=== PATIENT | female | born 1960 | race Caucasian/White ===

== ENCOUNTER → 2022-10-11 10:37 | Outpatient (CLI) | payer BC, SELFPAY ==
--- NOTE | ~2022-10-11 | US_ITS ---
Renal-Bladder ultrasound Clinical History: Chronic kidney disease Technique: Real-time sonographic imaging of the kidneys and urinary bladder was performed. Findings: The right kidney measures 8.9 cm in length and the left kidney measures 7.2 cm. There is no hydronephrosis or renal calculus identified. Renal cortical echogenicity is within normal limits. No renal mass lesion is identified. The urinary bladder is moderately distended at the time of this exam. No intraluminal echoes are iden tified. No abnormal wall thickening is seen. Impression: Unremarkable ultrasound of the kidneys and urinary bladder. Reviewed, dictated and finalized at location M. Impression: Unremarkable ultrasound of the kidneys and urinary bladder.
== END ==
PROVIDERS: PCP Nurse Practitioner Family; Visit Provider Specialist
DX: N18.30 Chronic kidney disease, stage 3 unspecified (principal)
CPT/HCPCS: 76770

== ENCOUNTER 2025-02-07 09:43 | Outpatient (CLI) | payer OTHER, SELFPAY ==
--- NOTE | ~2025-02-07 | MM_ITS ---
EXAMINATION: MM screening [facility] BI w ale HISTORY: Screening TECHNIQUE: Craniocaudal and mediolateral oblique 3-D tomosynthesis images were obtained and synthetic 2-D images were generated. CAD analysis was submitted and interpreted. COMPARISON: Comparison to multiple prior studies sequentially, with oldest reviewed study dated 01/2021. BREAST PARENCHYMAL COMPOSITION: Not Dense: The breasts are almost entirely fatty. FINDINGS: There is no evidence of suspicious mass, calcification, or architectural distortion to sugg est malignancy in either breast. There has been no suspicious interval change. IMPRESSION: 1. No mammographic evidence of malignancy. 2. Recommend routine screening mammography in one year. BI-RADS Category 1: Negative Reviewed, dictated and finalized at location A.
--- NOTE | ~2025-02-07 | DEXA_ITS ---
Bone Density Report Name: NICOLE ROSENBERG Age: 64 Sex: Female Ethnicity: White Date of : 1960 Indication: postmenopausal; screening for osteoporosis; height loss; Referring Provider: Dolly Grey Study: Bone densitometry was performed. Exam Date: February 07, 2025 Accession number: [id number] Bone Density: Region BMD T-score Z-score Classification AP Spine(L1-L4) 1.135 0.8 2.6 Normal Femoral Neck (Left) 0.756 -0.8 0.7 Normal Total Hip (Left) 0.980 0.3 1.6 Normal Femoral Neck (Right) 0.707 -1.3 0.3 Osteopenia Total Hip (Right) 0.990 0.4 1.7 Normal Total Hip Mean 0.985 0.4 1.7 Normal World Health Organization criteria for BMD impression classify patients as: Normal (T-score at or above -1.0), Osteopenia (T-score between -1.0 and -2.5), or Osteoporosis (T-score at or below -2.5). 10-year Fracture Risk(1): Major Osteoporotic Fracture 8.2% Hip Fracture 0.8% Reported Risk Factors: [place] (), Neck BMD=0.707, BMI=33.4 (1) FRAX(R) Version 3.08. Fracture probability calculated for an untreated patient. Fracture probability may be lower if the patient has received treatment. Clinical Information Provided by Patient: Has used the following medications: Vitamin D Patient maximum height was 67 Menopause Age: 46 No regular weight bearing exercise Does not regularly consume dairy products Drinks caffeinated beverages Onset of menses at age 12 Number of children 0 Impression: The patient has low bone mass, based on the Right Femoral Neck T-score. The patient has an estimated ten-year risk of hip fracture of 0.8% and an estimated ten-year risk of major fracture of 8.2%, based on the WHO FRAX algorithm. Discussion: BONE DENSITY IS LOW AT ONE OR MORE SKELETAL SITES. This patient's lowest T-score is low at one or more skeletal sites. It meets the World Health Organization's (WHO) criteria for ?low bone mass? (T-score between -1.0 and -2.5). The patient's 10-year risk of fracture as calculated by FRAX is less than the threshold where pharmacological therapy is recommended by the National Osteoporosis Foundation (NOF). However, all treatment decisions require clinical judgment and consideration of individual patient factors, including patient preferences, comorbidities, previous drug use, risk factors not captured in the FRAX model (e.g., frailty, falls, vitamin D deficiency, increased bone turnover, interval significant decline in bone density) and possible under or overestimation of fracture risk by FRAX. The patient should follow a healthful lifestyle (good nutrition with adequate calcium and vitamin D, and appropriate weight-bearing exercise). Follow-Up: Consider repeating this study in 2 to 3 years to reassess this patient's status, or sooner if there is some new clinical indication. Reported by: AMY on 02/07/2025 10:04:00 AM. Reviewed, dictated and finalized at location A.
== END 2025-02-07 09:44 | disposition home or self-care (01) ==
PROVIDERS: Visit Provider Nurse Practitioner Family
DX: Z12.31 Encounter for screening mammogram for malignant neoplasm of breast (principal); Z78.0 Asymptomatic menopausal state
CPT/HCPCS: 77063; 77067; 77080

== ENCOUNTER 2025-05-10 11:07 | Emergency (ER) | payer OTHER, SELFPAY ==
--- OUTSIDE RECORDS SUMMARY | 2010-01-22 09:15 | XMS_ITS | Continuity of Care Document ---
Author Organization [facility] Address [address] [place] [address] [address] [place] [address] Phone Care Team Providers Care Network Services Project Manager Name Role Phone Sally Gonzalez Unavailable Unavailable Procedures Procedure Date Eye Exam & Treatment Refraction Advance Directives Directive Yes / No Effective Date File Name No Information Encounters Encounter Description Practice Location Reason(s) For Visit Diagnoses Date Provider Providers Copied on Encounter [facility], [address] [place] [address] [address], [place], [place], [id number], [place] tel:[phone] [facility] [place] No Information 201 0 Lisa Zavala. [address] [facility] , [address], [place], [address], [place]. tel:[phone] Family History Family Member Type Diagnosis Age At Onset No Information Payers Payer name Insurance type Covered constitution party ID Authoriza tion(s) [employer] Plan CI [id number] Social History Type Description Quantity Date Captured Comments Sex Female Smoking Status No Information Chief Complaint And Reason For Visit No Information Reason For Referral Reason For Referral No Information History Of Present Illness Encounter Date Complaint History Of Prese nt Illness No Information Functional Status Date Functional Assessmen t No Information Instructions Date Instruction Additional Infor mation No Information Assessments Type Assessment Date No Information Patient Care Teams Name Effective Dates (start - stop) Status Members No Information
--- OUTSIDE RECORDS SUMMARY | 2010-01-22 09:15 | XMS_ITS | Continuity of Care Document ---
Author Organization [facility] Address [address] [place] [address] [address] [place] [address] Phone Care Team Providers Care Immunochemist Name Role Phone Sally Gonzalez Unavailable Unavailable Procedures Procedure Date Eye Exam & Treatment Refraction Advance Directives Directive Yes / No Effective Date File Name No Information Encounters Encounter Description Practice Location Reason(s) For Visit Diagnoses Date Provider Providers Copied on Encounter [facility], [address] [place] [address] [address], [place], [place], [id number], [place] tel:[phone] [facility] [place] No Information 201 0 Lisa Zavala. [address] [facility] , [address], [place], [address], [place]. tel:[phone] Family History Family Member Type Diagnosis Age At Onset No Information Payers Payer name Insurance type Covered libertarian ID Authoriza tion(s) [employer] Plan CI [id number] Social History Type Description Quantity Date Captured [...]
--- OUTSIDE RECORDS SUMMARY | 2010-01-22 09:15 | XMS_ITS | Continuity of Care Document ---
Author Organization [facility] Address [address] [place] [address] [address] [place] [address] Phone Care Team Providers Care Homicide Squad Captain Name Role Phone Sally Gonzalez Unavailable Unavailable Procedures Procedure Date Eye Exam & Treatment Refraction Advance Directives Directive Yes / No Effective Date File Name No Information Encounters Encounter Description Practice Location Reason(s) For Visit Diagnoses Date Provider Providers Copied on Encounter [facility], [address] [place] [address] [address], [place], [place], [id number], [place] tel:[phone] [facility] [place] No Information 201 0 Lisa Zavala. [address] [facility] , [address], [place], [address], [place]. tel:[phone] Family History Family Member Type Diagnosis Age At Onset No Information Payers Payer name Insurance type Covered democrat ID Authoriza tion(s) [employer] Plan CI [id number] Social History Type Description Quantity Date Captured [...]
[2025-05-10 11:08] VITALS: BP 200/92; PULSE 80; RESP 18; TEMP 36.8; O2SAT 100
--- NOTE | 2025-05-10 11:11 | ECG_ITS ---
Test Date: 2025-05-10 11:15:30 Measurements Intervals [place] Rate: 45 P: 0 DE: 0 QRS: -6 QRSD: 91 T: 52 QT: 443 QTc: 386 Interpretive Statements SINUS BRADYCARDIA BASELINE ARTIFACT LEAD V2 ABNORMAL ECG No previous ECG available for comparison Electronically Signed On 05-10-2025 13:25:47 BREAD WRAPPER OPERATOR by Ed Mcclure M.D.
[2025-05-10 11:44] VITALS: BP 154/96; PULSE 47; RESP 16; O2SAT 100
--- NOTE | 2025-05-10 13:20 | ED.RECABL ---
HPI - Recheck/Abnormal Lab/Rx General Chief Complaint: Recheck/Abnormal Lab/Rx Stated Complaint: hypertension Time Seen by Provider: 05/10/25 12:23 Source: patient Mode of arrival: ambulatory Limitations: no limitations History of Present Illness HPI narrative: This is a 65-year-old female with history of hyperlipidemia, hypertension who presents the ED from her PCPs office for hypertension. Patient states that she had a regular follow-up with her PCP today and was noted to have a blood pressure in the 200s systolic so she was sent here for further evaluation. Patient denies chest pain, headache, change in vision, hematuria, shortness of breath. She has been taking her metoprolol as prescribed. Related Data Home Medications ?Medication ?Instructions ?Recorded ?Confirmed ?Last Taken ?Type ascorbic acid (vitamin C) 1,000 mg 1 g PO DAILY 05/14/24 05/10/25 Unknown History capsule diphenhydramine HCl 25 mg capsule 25 mg PO QHS PRN 05/14/24 05/10/25 Unknown History (Allergy (diphenhydramine)) magnesium oxide 400 mg PO DAILY 05/14/24 05/10/25 Unknown History omega 3-gzy-oyy-fish oil 300 1 cap PO DAILY 05/14/24 05/10/25 Unknown History mg-1,000 mg capsule,delayed release (Fish Oil) econazole nitrate 1 % topical cream applic topical 09/14/24 05/10/25 Unknown History Allergies Allergy/AdvReac Type Severity Reaction Status Date / Time amlodipine Allergy Severe Cough Verified 05/10/25 10:29 bee venom protein (honey bee) Allergy Severe Anaphylaxis Verified 05/10/25 10:29 poison sly extract Allergy Severe Anaphylaxis Verified 05/10/25 10:29 Review of Systems Review of Systems: Gen.: Denies fevers or chills Eyes: Denies eye pain or visual change ENT: Denies congestion Respiratory: Denies shortness of breath or cough CV: Denies chest pain or palpitations GI: Denies abdominal pain nausea, emesis or diarrhea denies burning, urgency, frequency or hematuria Musculoskeletal: Denies back pain or muscle pain Neuro: Denies numbness, tingling, weakness or focal weakness Skin: Denies rash Except as documented, all other systems reviewed and negative PMFSH Past Medical History Medical History Patient new to facility Hypertension Sepsis secondary to UTI Family History Family History Father Diabetes mellitus Hypertension Social History Social History Smoking status: Never smoker Alcohol intake: never Substance use: never Substance use type: does not use Do You Feel Safe in your Home?: Yes Lack of Transportation: No Lack of Food: Never True Current Housing: I Have Housing Exam Narrative: APPEARANCE: No acute distress, nontoxic, resting in bed EYES: EOMI HEENT: Normocephalic, atraumatic, OMM RESPIRATORY: No respiratory distress Clear to auscultation bilaterally with no rhonchi wheezing or rales. CARDIOVASCULAR: Regular rate and rhythm without murmurs rubs or gallops. ABDOMINAL: Soft, nontender, nondistended, no rebound or guarding MUSCULOSKELETAl: Moves all extremities. No clubbing, cyanosis or edema. NEURO: Awake and alert. Following commands, speech normal, no focal deficits SKIN:: Warm, dry. No rashes lesions or abrasions PSYCHIATRIC: Normal affect/mood, Course Vital Signs Vital signs: Vital Signs Temperature 98.2 F 05/10/25 11:08 Pulse Rate 80 05/10/25 11:08 Respiratory Rate 18 05/10/25 11:08 Blood Pressure 200/92 H 05/10/25 11:08 Pulse Oximetry 100 05/10/25 11:08 Oxygen Delivery Room Air 05/10/25 11:08 Temperature 98.2 F 05/10/25 11:08 Pulse Rate 52 L 05/10/25 13:36 Respiratory Rate 12 05/10/25 13:36 Blood Pressure 207/110 H 05/10/25 13:36 Pulse Oximetry 97 05/10/25 13:36 Oxygen Delivery Room Air 05/10/25 11:44 MDM - Recheck/Abnormal Lab/Rx MDM Narrative Medical decision making narrative: 65-year-old female Presenting for hypertension. On initial evaluation patient was in no acute distress afebrile, hemodynamic stable. Hypertensive to 200/92. Differentials include but are not limited to: Hypertensive urgency, hypertensive emergency, essential hypertension Notable exam findings: Nonfocal neuro exam. Heart and lungs clear. I personally reviewed the patient's EKGs: 05/10/2025 at 11:15 a.m.: Sinus bradycardia rate of 45, normal axis normal intervals, no acute ST or T-wave changes Had a long discussion the patient regarding hypertensive management. Patient is already on metoprolol for this. As she is asymptomatic at this time, she does not require any additional treatments and any immediate interventions could be detrimental to her. EKG showed no concerning findings except that she is little bradycardic so advised her to follow-up with her PCP regarding potentially changing her metoprolol. She will be started on losartan as well and was advised follow-up with her PCP in the next week. She was also educated on keeping track of her blood pressures. Patient was agreeable to this plan. Patient was given strict return precautions. Medical Records Attestation: I reviewed the patient's medical records. Discharge Plan Discharge Clinical Impression: Hypertension Qualifiers: Hypertension type: unspecified Qualified Code(s): I10 - Essential (primary) hypertension Patient Disposition: Home Condition: Stable Instructions: Antibiotic Form, Hypertension (ED) Additional Instructions: take losartan as prescribed. Follow-up with your PCP early next week. Return to the ED for any new or worsening symptoms. Patient Language: Swazi Prescriptions: New losartan 25 mg tablet 25 mg PO DAILY Qty: 30 0RF No Action econazole nitrate 1 % cream topical ascorbic acid (vitamin C) 1,000 mg capsule 1 g PO DAILY omega 6-ugq-zrq-fish oil [Fish Oil] 300-1,000 mg capsule,delayed release(DR/EC) 1 cap PO DAILY magnesium oxide 400 mg magnesium capsule 400 mg PO DAILY diphenhydramine HCl [Allergy (diphenhydramine)] 25 mg capsule 25 mg PO QHS PRN atorvastatin 10 mg tablet 10 mg PO DAILY Qty: 90 1RF metoprolol succinate 100 mg tablet extended release 24 hr 100 mg PO DAILY Qty: 90 1RF ergocalciferol (vitamin D2) 1,250 mcg (50,000 unit) capsule 1,250 mcg PO WEEKLY Qty: 8 0RF Follow-up/Referrals: Lj Quach MD [Primary Care Provider, Family Practice]
[2025-05-10 13:36] VITALS: BP 207/110; PULSE 52; RESP 12; O2SAT 97
[2025-05-10] MEDS: LOSARTAN POTASSIUM 12.5 MG TABLET PO (13:40)
--- OUTSIDE RECORDS SUMMARY | 2025-05-10 17:23 | XMS_ITS | Patient Health Record ---
Author Organization [facility] Address [address] [place] [address] Support Name Relationship Address Phone NICOLE ROSENBERG Guarantor Unknown [phone] Reason For Referral No Information Medications Medication SIG (Take, Route, Frequency, Duration) Notes Start Date End Date Status Vitamin D (Ergocalciferol) 1.25 MG (05165 UT) TAKE 1 CAPSULE BY MOUTH ONCE WEEKLY; Duration: 84 Active Calcitriol 0.25 MCG TAKE 1 CAPSULE BY [place] UTH ON TUESDAY, TUESDAY AND FRIDAYS; Duration: 84 Active Problems Problem Type SNOMED Code ICD Code Onset Dates Problem Status W/U Status Risk Notes Problem Vitamin D deficiency (59137106) Vitamin D deficiency, unspecified (E55.9) Active confirmed Problem Anxiety disorder (676183086) Anxiety disorder, unspecified (F41.9) Active confirmed Problem Essential hypertension (88072455) Essential (primary) hypertension (I10) Active confirmed Problem Chronic kidney disease stage 2 (569838924) Chronic kidney disease, stage 2 (mild) (N18.2) Active confirmed Problem Renal osteodystrophy (63260770) Renal osteodystrophy (N25.0) Active confirmed Problem Chronic fatigue syndrome (disorder) (45970450) Chronic fatigue, unspecified (R53.82) Active confirmed Plan Of Treatment No Information
--- OUTSIDE RECORDS SUMMARY | 2025-05-10 17:24 | XMS_ITS | Encounter Summary ---
Author Organization [facility] Address [address] [place] [address] Care Team Providers Care Bail Agent Name Role Phone Wendie Marquez MANAGER OF PHARMACY-MICROBIOLOGY TECHNICIAN Primary Care Provider [phone] Sallie Mendez Primary Care Provider [phone] Dolly Grey MANAGER OF PHARMACY-MICROBIOLOGY TECHNICIAN Primary Care Provider Reason for Visit * Reason Onset Date Comments Appointment 08/17/2022 Encounter Details Date Type Department Care Team (Late st Contact Info) Description 08/17/2022 Telephone [facility] [address] [place] [address] Aidan Gonsalez MD [facility] [place] [address] Appointment Social History Tobacco Use Types Packs/Day Years Used Date Smoking Tobacco: Never Smokeless Tobacco: Never Alcohol Use Standard Drinks/Week Comments No 0 (1 standard drink = 0.6 oz pur e alcohol) Comments No Sex and Gender Information Value Date Recorded Sex Assigned at Not on file Legal Sex Female 5:12 PM RAFTER CUTTING MACHINE OPERATOR Gender Identity Not on file Sexual Orientation Not on file documented as of this encounter Miscellaneous Notes * Telephone Encounter - Keyla [place] - 08/20/2022 10:53 AM CST Pt wants to be scheduled in a frozen spot for Dr Gonsalez per patient it is in the chart for lichen sclerosusis ER CUTTING MACHINE OPERATOR * Telephone Encounter - Swati Castaneda - 08/17/2022 11:00 AM CST Pt wants to be scheduled in a frozen spot for Dr Gonsalez per patient it is in the chart. ER CUTTING MACHINE OPERATOR documented in this encounter Plan of Treatment Upcoming Encounters Date Type Department Care Team (Late st Contact Info) Description 09/09/2025 9:50 AM CDT Office Visit [facility] - Dermatology [address] [facility], [place] [address] Aidan Gonsalez MD [address] [place] [address] [address] [place] [id number] documented as of this encounter Visit Diagnoses Not on filedocumented in this encounter Care Teams Bail Agent Relationship Specialty Start Date End Date Wendie Marquez APRN-[place] [address] [facility] [address] [place] [phone] PCP - General Nurse Practitioner Family 03/11/1910/25 Sallie Mendez [address] [place] [phone] PCP - General 11/14/23 05/27/24 Dolly Grey APRN-MICROBIOLOGY TECHNICIAN [address] [place] [address] PCP - General Nurse Practitioner Family 05/28/24 documented as of this encounter
--- OUTSIDE RECORDS SUMMARY | 2025-05-10 17:24 | XMS_ITS | Encounter Summary ---
Author Organization [facility] Address [address] [facility] [place] [address] Care Team Providers Care Financial Director Name Role Phone Wendie Marquez SANDFILL OPERATOR SURFACE-BILLING REP Primary Care Provider [phone] Sallie Mendez Primary Care Provider [phone] Dolly Grey SANDFILL OPERATOR SURFACE-BILLING REP Primary Care Provider Encounter Details Date Type Department Care Team (Late st Contact Info) Description 08/31/2022 Telephone [facility] [address] [facility], [facility] [place] [address] Aidan Gonsalez MD [address] [facility] [address] [place] [address] Social History Tobacco Use Types Packs/Day Years Used Date Smoking Tobacco: Never Smokeless Tobacco: Never Alcohol Use Standard Drinks/Week Comments No 0 (1 standard drink = 0.6 oz pur e alcohol) Comments No Sex and Gender Information Value Date Recorded Sex Assigned at Not on file Legal Sex Female 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 Patient would like to know if this will be coded as cancelled and not a no show. Patientis also needing to reschedule the appt jaxson. * Telephone Encounter - Lillian Paz - 08/31/2022 8:51 AM CST Current Provider name: zach Reason for call: pt stated that she will not be able to make her 09/01 appt and would like to be schedule in a frozen spot per patient on a Tuesday if possible Patient Call Back number: [phone] MOTIVE TIRE TESTER documented in this encounter Plan of Treatment Upcoming Encounters Date Type Department Care Team (Late st Contact Info) Description 09/09/2025 9:50 AM CDT Office Visit [facility] - Dermatology [address] [place] [address], [facility] [place] [phone] Aidan Gonsalez MD [address] [place] [address] [address] [place] [phone] documented as of this encounter Visit Diagnoses Not on filedocumented in this encounter Care Teams Financial Director Relationship Specialty Start Date End Date Wendie Marquez APRN-CNP [address] [address] PCP - General Nurse Practitioner Family 03/11/1910/25 Sallie Mendez [address] [place] [address] PCP - General 11/14/23 05/27/24 Dolly Grey APRN-BILLING REP [address] [place] [address] PCP - General Nurse Practitioner Family 05/28/24 documented as of this encounter
--- OUTSIDE RECORDS SUMMARY | 2025-05-10 17:24 | XMS_ITS | Encounter Summary ---
Author Organization [facility] Address [address] [facility] [place] [address] Care Team Providers Care Aircraft Life Support Fitter Name Role Phone Wendie Marquez LINE CAMERA OPERATOR-SAMPLE PREPARATION SUPERVISOR Primary Care Provider [phone] Sallie Mendez Primary Care Provider [phone] Dolly Grey LINE CAMERA OPERATOR-SAMPLE PREPARATION SUPERVISOR Primary Care Provider Reason for Visit * Reason Onset Date Comments General 10/26/2019 Encounter Details Date Type Department Care Team (Late Contact Info) Description 10/26/2019 Telephone [facility] [address] [place] [address] Aidan Gonsalez MD [address] [facility] 3L [place] [id number] General Social History Tobacco Use Types Packs/Day Years Used Date Smoking Tobacco: Never Smokeless Tobacco: Never Alcohol Use Standard Drinks/Week Comments No 0 (1 standard drink = 0.6 oz pur e alcohol) Comments No Sex and Gender Information Value Date Recorded Sex Assigned at Not on file Legal Sex Female 5:12 PM RESIDENTIAL SUPERVISOR Gender Identity Not on file Sexual Orientation Not on file documented as of this encounter Miscellaneous Notes * Telephone Encounter - Jennifer Bhandari - 10/26/2019 10:36 AM CDT Pt called to let Dr Gonsalez know she Increased her medicine from 3 to 4 per day this last Tuesday. documented in this encounter Plan of Treatment Upcoming Encounters Date Type Department Care Team (Late Contact Info) Description 09/09/2025 9:50 AM CDT Office Visit [facility] [address] [facility], [place] [phone] Aidan Gonsalez MD [facility] [facility] [address]L [place] [address] documented as of this encounter Visit Diagnoses Not on filedocumented in this encounter Care Teams Aircraft Life Support Fitter Relationship Specialty Start Date End Date Wendie Marquez APRN-SAMPLE PREPARATION SUPERVISOR [address] [facility] [address] [place] [address] PCP - General Nurse Practitioner Family 03/11/1910/25 Sallie Mendez [address] [place] [address] PCP - General 11/14/23 05/27/24 Dolly Grey, LINE CAMERA OPERATOR-SAMPLE PREPARATION SUPERVISOR [address] [place] [address] PCP - General Nurse Practitioner Family 05/28/24 documented as of this encounter
--- OUTSIDE RECORDS SUMMARY | 2025-05-10 17:24 | XMS_ITS | Encounter Summary ---
Author Organization [facility] Address [address] [place] [address] Care Team Providers Care Science Writer Name Role Phone Wendie Marquez MORTGAGE LOAN COUNSELOR-MOTHER SUPERIOR Primary Care Provider [phone] Sallie Mendez Primary Care Provider [phone] Dolly Grey MORTGAGE LOAN COUNSELOR-MOTHER SUPERIOR Primary Care Provider Encounter Details Date Type Department Care Team (Late st Contact Info) Description 09/09/2022 Telephone [facility] [address] 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 Jazz stated Dr Gonsalez is needing to put her signature on the form and they cannot accept Jeniffers signature since Wallace'roxanne is listed as the provider. Patient Call Back number: [phone] documented in this encounter Plan of Treatment Upcoming Encounters Date Type Department Care Team (Late st Contact Info) Description 09/09/2025 9:50 AM CDT Office Visit [facility] - Dermatology [address] [place] [address], [place] [address] Aidan Gonsalez MD [address] [place] [address] 3 [place] [address] documented as of this encounter Visit Diagnoses Not on filedocumented in this encounter Care Teams Science Writer Relationship Specialty Start Date End Date Wendie Marquez APRN-CNP [address] [facility] [address] [place] [address] PCP - General Nurse Practitioner Family [birth year]/11/1910/25 Sallie Mendez [address] [place] [address] PCP - General 11/14/23 05/27/24 Dolly Grey APRN-CNP [address] [place], [place] [id number] PCP - General Nurse Practitioner Family 05/28/24 documented as of this encounter
--- OUTSIDE RECORDS SUMMARY | 2025-05-10 17:24 | XMS_ITS | Encounter Summary ---
Author Organization [facility] Address [address] [facility] [place] [address] Care Team Providers Care Product Support Engineer Name Role Phone Wendie Marquez SUPERVISOR COLD ROLLING-RATING SPECIALIST Primary Care Provider [phone] Sallie Mendez Primary Care Provider [phone] Dolly Grey SUPERVISOR COLD ROLLING-RATING SPECIALIST Primary Care Provider Reason for Visit * Reason Onset Date Comments Med Question 03/04/2020 Encounter Details Date Type Department Care Team (Late st Contact Info) Description 03/04/2020 Telephone [facility] [address] [place] [address] Aidan Gonsalez MD [address] [facility] 3L [place] [address] Med Question Social History Tobacco Use Types Packs/Day Years Used Date Smoking Tobacco: Never Smokeless Tobacco: Never Alcohol Use Standard Drinks/Week Comments No 0 (1 standard drink = 0.6 oz pur e alcohol) Comments No Sex and Gender Information Value Date Recorded Sex Assigned at Not on file Legal 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 She is wondering if this will cause her LS to flare. I told her this likely will not cause an LS flare. Sam Ruelas MD Dermatology Resident, PGY-4 03/06/2020 2:17 PM * Telephone Encounter - Jennifer Bhandari - 03/04/2020 9:02 AM CDT Pt states she has been prescribed a new medication from a different dr and she wants to make sure this will be ok for her to take. The name of the medication is Premarin. Please advise. documented in this encounter Plan of Treatment Upcoming Encounters Date Type Department Care Team (Late st Contact Info) Description 09/09/2025 9:50 AM CDT Office Visit [facility] - Dermatology [address] [place] [address], [place] [phone] Aidan Gonsalez MD [address] [place] [address] 3 [place] [phone] documented as of this encounter Visit Diagnoses Not on filedocumented in this encounter Care Teams Product Support Engineer Relationship Specialty Start Date End Date Wendie Marquez APRN-[place] [address] [address] PCP - General Nurse Practitioner Family 03/11/1910/25 Sallie Mendez [address] [place] [address] PCP - General 11/14/23 05/27/24 Dolly Grey APRN-RATING SPECIALIST [address] [place] [address] PCP - General Nurse Practitioner Family 05/28/24 documented as of this encounter
--- OUTSIDE RECORDS SUMMARY | 2025-05-10 17:25 | XMS_ITS | Clinical Summary ---
Author Organization [facility] [employer] Address [address] [place] [address] Care Team Providers Care Manager Zone Name Role Phone Dolly Grey TABBER-RN SUPPLEMENTAL Primary Care Provider Source Comments [facility],non-owned Affiliates and Associated Physician Practices is amultiple site organization consisting of ambulatory clinics and hospital sitesin [place], [place], [place] and [place]. This disclosure is being madepursuant to the Care Everywhere program and may not contain all information available regarding this patient. Last updated 18.[facility] [employer] Allergies Active Allergy Reactions Criticality Noted Date Comments Amlodipine Base Cough High 04/21/2020 Pt states that she had a severe and persistent cough Bee Venom Nausea and/or Vomiting,Angioedema High 02/04/2020 Insect Extract Other 12/10/2024 Nifedipine Cough High 04/21/2020 Penicillins Seizures High 03/11/2019 Can take Amoxicillin Poison Amie Scrub Urticaria,Rash,Angio e mara High 02/04/2020 Shellfish Other 12/10/2024 Shellfish Allergy Urticaria Medium 02/04/2020 Medications * Be aware that medications may not be up to date on this document. Alwaysverify current medications with the patient. Miconazole-Zin c Oxide-Petrolat (VUSION) 0.25-15-81.35 % 50 g 0 06/06/20 17 Active desoximetasone (TOPICORT-LP) 0.05 % ointment 1 g BID. 60 g 1 04/04/20 17 Active cyclobenzaprin e (FLEXERIL) 10 MG tablet Take 1 (one) tablet by mouth 3 times daily as needed 0 03/19/20 16 Active metoprolol succinate XL 24hr (TOPROL XL) 100 MG tablet Take 1 (one) tablet by mouth once daily 12/23/19 18 Active fluticasone propionate (FLONASE) 50 MCG/ACT nasal spray [place] 1 (one) spray into each nostril once daily 02/17/20 18 Active albuterol HFA (Proventil; Ventolin; Proair) 108 (90 Base) MCG/ACT inhaler Inhale 2 puffs by mouth every 4 hours as needed Active calcitriol (ROCALTROL) 0.25 MCG capsule Take 1 (one) capsule by mouth once daily 09/17/19 20 Active vitamin D, ergocalciferol , (DRISDOL) 1.25 MG (25612 UT) capsule every 30 days 09/17/19 20 Active meloxicam (MOBIC) 15 MG tablet Take 1 (one) tablet by mouth once daily 06/12/20 19 Active nitrofurantoin monohyd macro crystals (MACROBID) 100 MG capsule 10/31/19 20 Active atorvastatin (LIPITOR) 10 MG tablet Take 1 (one) tablet by mouth at bedtime Activ e colchicine 0.6 MG tablet Take 2 (two) tablets by mouth as needed 09/16/19 21 Active Inman-3 Fatty Acids (FISH OIL) 1000 MG capsule Take 1 (one) capsule by mouth once daily Activ e sulfamethoxazo le-trimethopri m (Bactrim DS; Septra DS) 800-160 MG tablet sulfamethoxazole 800 mg-trimethoprim 160 mg tablet TAKE 1 TABLET BY MOUTH TWICE A DAY Active Mounjaro 12.5 MG/0.5ML injection INJECT 1 PEN ONCE A WEEK SUBCUTANEOUSLY 09/30/19 23 Active magnesium oxide (Mag-Ox) 400 MG tablet TAKE 1 TABLET BY MOUTH TWICE A DAY DIRECTED 11/20/19 23 Active trimethoprim (Trimpex) 100 MG tablet Take 1 (one) tablet by mouth 04/09/20 23 Active mycophenolate (CellCept) 500 MG tabletIndicati ons:Lichen sclerosus et atrophicus Take 1 tablet daily as instructed - 90 day supply 90 tablet 05/28/20 24 Active econazole nitrate (Spectazole) 1 % creamIndicatio ns:Tinea pedis of both feet,Onychomyc osis Apply to BL feet and toenail weekly. 30 days supply. 85 g 3 05/28/20 24 Active ketoconazole (Nizoral) 2 % creamIndicatio ns:Intertrigo, Tinea pedis of both feet Apply to entire foot once weekly. 30 days supply. 60 g 5 12/11/19 25 Active Active Problems Problem Noted Date Diagnosed Date Onychomycosis 01/26/2021 Tinea pedis of both feet 01/26/2021 Adhesive capsulitis of shoulder 11/01/2019 Cervical radiculopathy 11/01/2019 Essential hypertension 11/01/2019 Hyperlipidemia 11/01/2019 Low back pain 11/01/2019 Obesity 11/01/2019 Shoulder pain 11/01/2019 Vulvitis 11/01/2019 Dysuria 04/17/2018 High risk medications (not anticoagulants) long- term use 03/20/2018 Vitamin D deficiency 06/24/2017 Encounter for screening for malignant neoplasm o f breast 02/01/2017 Rhinitis 02/01/2017 Lichen sclerosus et atrophicus 08/28/2014 Resolved Problems Problem Noted Date Diagnosed Date Resolved Date Cough 06/24/2017 11/29/2019 Encounters Date Type Department Care Team Description 04/15/2025 9:50 AM CDT Office Visit [facility] - Dermatology [address] [place] [address], [place] [address] Aidan Gonsalez MD Lichen sclerosus et atrophicus (Primary Dx); Encounter for long-term current use of high risk medication 04/15/2025 Travel from Last 3 Months Immunizations Immunization Administration Dates Next Due FLU VACCINE QUAD IIV4 SPLIT 0.25 ML IM 04/10/2020,04/18/2019,03/23/2016,2014 FLU VACCINE TRI IIV3 SPLIT P F IM (FLUVIRIN) 04/25/2013 INFLUENZA VACCINE 03/27/2017 INFLUENZA VACCINE, HIGH-DOSE , QUADR. (FLUZONE HIGH-DOSE QUADRIVALENT; 65Y+), 0.7 ML (HD-IIV4) 04/15/2014,04/25/2012,04/21/2011,2009,04/10/2009,04/26/2008,04/12/2007 INFLUENZA VACCINE, QUADR. (F LUZONE; FLULAVAL; FLUARIX; AFLURIA QUADRIVALENT; 6MO+), 0.5 ML (IIV4) 04/10/2020,04/18/2019,04/17/2018 Family History Medical History Relation Name Comments None Known Brother None Known Father None Known Maternal Aunt None Known Maternal Grandfather None Known Maternal Grandmother None Known Maternal Uncle None Known Mother None Known Other None Known Paternal Aunt None Known Paternal Grandfather None Known Paternal Grandmother None Known Paternal Uncle None Known Sister Asthma Neg Hx CVA Neg Hx Cancer - Breast Neg Hx Cancer - Other Neg Hx Cancer - Skin, Melanoma Neg Hx Cancer - Skin, Non Melanoma Neg Hx Eczema Neg Hx Hemophilia Neg Hx Psoriasis Neg Hx Relation Name Status Comments Brother Father Maternal Aunt Maternal Grandfather Maternal Grandmother Maternal Uncle Mother Other Paternal Aunt Paternal Grandfather Paternal Grandmother Paternal Uncle Sister Social History Tobacco Use Types Packs/Day Years Used Date Smoking Tobacco: Never Smokeless Tobacco: Never Tobacco Cessation:Counseling Given: Not Answered Alcohol Use Standard Drinks/Week Comments No 0 (1 standard drink = 0.6 oz pur e alcohol) Comments No Sex and Gender Information Value Date Recorded Sex Assigned at Not on file 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 Gender Identity Not on file Sexual Orientation Not on file Last Filed Vital Signs Vital Sign Reading Time Taken Comments Blood Pressure 128/76 03/11/2019 3:11 PM CDT Pulse 66 03/11/2019 3:11 PM CDT Temperature 36.7 C (98 F) 03/11/2019 3:11 PM CDT Respiratory Rate 18 03/11/2019 3:11 PM CDT Oxygen Saturation - - Inhaled Oxygen Concentration - - Weight - - Height - - Body Mass Index - - Plan of Treatment Upcoming Encounters Date Type Department Care Team (Late st Contact Info) Description 09/09/2025 9:50 AM CDT Office Visit [facility] - Dermatology [address] [place] [address], [facility] [place] [address] Aidan Gonsalez MD [address] [place] [address] [address] [place] [address] Health Maintenance Due Date Last Done Comments BONE DENSITY TESTING 1959 COLOGUARD (AGES 45-75) - COLON CA SCREENING 1959 COLON MONITORING 1959 COLONOSCOPY - COLON CA SCREENING 1959 CT COLONOGRAPHY - COLON CA SCREENING 1959 Colorectal Cancer Screening 1959 FIT - COLON CA SCREENING 1959 FLEX SIG - COLON CA SCREENING 1959 MAMMOGRAM 1959 MEDICARE AWV 12 MONTHS 1959 COVID-19 VACCINE (#1) 1964 DTAP/TDAP/TD VACCINES (1 - Tdap) 1978 PNEUMOCOCCAL VACCINE 50+ (1 of 2 - PCV) 1978 ZOSTER VACCINE (1 of 2) 1978 Respiratory Syncytial Virus (RSV) Vaccine Pt: or over 60 yrs (1 - Risk 50-74 years 1-dose series) 2009 DEPRESSION SCREENING 06/27/2024 INFLUENZA VACCINE (#1) 2025 0, 04/10/2020, 04/18/2019, Additional history exists HEPATITIS C SCREENING Completed 01/05/2017 HEPATITIS B VACCINE Aged Out No longe r eligible based on patient's age to complete this topic HIB VACCINE Aged Out No longer eligi ble based on patient's age to complete this topic HPV VACCINE Aged Out No longer eligi ble based on patient's age to complete this topic MENINGOCOCCAL (Group B) VACCINE SHARED DECISION-MAKING Aged Out No longer eligible based on patient's age to complete this topic MENINGOCOCCAL GROUPS A/C/Y/W VACCINE Aged Out No longer eligible based on patient's age to complete this topic Procedures Procedure Name Priority Date/Time Associated Diagnosis Comments HEPATITIS SCREEN ACUTE Routine 01/05/2017 10:02 AM CDT from Last 3 Months or Most Recently Relevant to Health Maintenance Results * HEPATITIS SCREEN ACUTE (01/05/2017 10:02 AM CDT) Hepatitis A Virus Antibody IgM Negative Negative [facility] ([facility]) Hepatitis B Virus Surface Antigen Screen Negative Negative [facility] ([facility]) Hepatitis B Core Virus Antibody IgM Negative Negative [facility] ([facility]) Hepatitis C Virus Antibody <0.1 0.0 - 0.9 s/co ratio [facility] ([facility]) Comment: Negative: < 0.8 Indeterminate: 0.8 - 0.9 Positive: > 0.9 The CDC recommends that a positive HCV antibody result be followed up with a HCV Nucleic Acid Amplification test ([id number]). Blood specimen (specimen) BLOOD SPECIMEN / Unknown 01/05/2017 10:02 AM CDT 01/05/2017 Narrative [facility] ([facility]) - 01/06/2017 6:13 AM CDT Performed at: [facility] [address] [place], [place] [id number] System Sales Consultant: Imer Alicea PhD, Phone: [phone] us M Paradise Gonsalez MD LAB - CHEMISTRY ORDERABLES Fi nal Result [facility] ([facility]) [address] [place] [address] from Last 3 Months or Most Recently Relevant to Health Maintenance Insurance [facility] MEDICARE ADV PPO Care Teams Manager Zone Relationship Specialty Start Date End Date Dolly Grey APRN-RN SUPPLEMENTAL [address] [place] [address] PCP - General Nurse Practitioner Family 05/28/24
== END 2025-05-10 13:45 | disposition home or self-care (01) ==
PROVIDERS: Emergency Provider Student in an Organized Health Care Education/Training Program; PCP Family Medicine
DX: I10 Essential (primary) hypertension (principal); E78.5 Hyperlipidemia, unspecified
CPT/HCPCS: 93005; 99283; A9270